=== PATIENT | female | born 1940 | race Caucasian/White ===

== ENCOUNTER 2021-09-14 13:53 | Inpatient (IN) | payer MEDICARE ==
[~2021-09-14] VITALS: Ht 170.2 cm; Wt 68.6 kg
[2021-09-14] MEDS ORDERED: TIMO0.5S29 OU (15:43)
[2021-09-14] MEDS ORDERED: MONT10TA97 PO (15:43)
[2021-09-14] MEDS ORDERED: GABA-1171 PO (15:43)
[2021-09-14] MEDS ORDERED: METF500T13 PO (15:43)
[2021-09-14] MEDS ORDERED: LOSA25TA13 PO (15:43)
[2021-09-14] MEDS ORDERED: OXYB5TAB10 PO (15:43)
[2021-09-14] MEDS ORDERED: OMEP40CA5 PO (15:43)
[2021-09-14] MEDS ORDERED: VENL75CA47 PO (15:43)
[2021-09-14] MEDS ORDERED: LEVE500T5 PO (15:43)
[2021-09-14] MEDS ORDERED: PRAV10TA4 PO (15:43)
[2021-09-14] MEDS ORDERED: LACO100T PO (15:43)
[2021-09-14 16:12] LABS: BASO % 0.2 % (0.0-1.0); EOS # 0.1 10^3/uL (0.0-0.5); EOS % 2.2 % (0.0-3.0); HEMOGLOBIN 9.6 g/dl (12.0-15.5); LYMPH # 1.5 10^3/uL (1.5-5.0); LYMPH % 33.3 % (24.0-44.0); MEAN CORPUSCULAR HEMOGLOBIN 27.5 pg (27.0-33.0); MEAN CORPUSCULAR HGB CONC 34.3 g/dl (32.0-36.5); MEAN CORPUSCULAR VOLUME 80.2 fl (80.0-96.0); MONO # 0.5 10^3/uL (0.0-0.8); NEUTROPHILS # 2.5 10^3/uL (1.5-8.5); NEUTROPHILS % 54.1 % (36.0-66.0); PLATELET COUNT, AUTOMATED 141 10^3/uL (150-450); RED BLOOD COUNT 3.49 10^6/uL (4.00-5.40); WHITE BLOOD COUNT 4.6 10^3/uL (4.0-10.0)
[2021-09-14 16:48] LABS: ALBUMIN 2.8 GM/DL (3.2-5.2); ALT/SGPT 14 U/L (12-78); BILIRUBIN,DIRECT 0.1 MG/DL (0.0-0.2); BILIRUBIN,TOTAL 0.4 MG/DL (0.2-1.0); BLOOD UREA NITROGEN 10 MG/DL (7-18); CALCIUM LEVEL 7.9 MG/DL (8.8-10.2); CARBON DIOXIDE LEVEL 30 MEQ/L (21-32); CHLORIDE LEVEL 102 MEQ/L (98-107); CREATININE FOR GFR 0.72 MG/DL (0.55-1.30); GLOMERULAR FILTRATION RATE > 60.0 (>32); GLUCOSE, FASTING 90 MG/DL (70-100); LIPASE 405 U/L (73-393); POTASSIUM SERUM 2.8 MEQ/L (3.5-5.1); SODIUM LEVEL 138 MEQ/L (136-145); TOTAL PROTEIN 5.6 GM/DL (6.4-8.2)
[2021-09-14] MEDS ORDERED: KCL 10MEQ/100ML SWI (KRUN) 10 MEQ in IV 1 EA IV ONE (17:05)
[2021-09-14 17:17] LABS: MAGNESIUM LEVEL 1.1 MG/DL (1.8-2.4)
[2021-09-14] MEDS ORDERED: NS 1,000 ML IV ONE (17:35)
[2021-09-14] MEDS ORDERED: MORPHINE 2 MG/ML 1ML VIAL IV ONE (17:35)
[2021-09-14] MEDS ORDERED: ISOVUE-370 76% 100ML VIAL As Ordered ONE (18:04)
[2021-09-14] MEDS ORDERED: MAG SULF 1GM/100ML (MAG RUN) 1 GM in IV 1 EA IV ONE ×2 (18:10→22:55)
[2021-09-14 19:04] LABS: INR 1.2; PARTIAL THROMBOPLASTIN TIME 31.9 SECONDS (25.9-37.0); PROTHROMBIN TIME 15.6 SECONDS (12.7-14.5)
[2021-09-14 19:11] LABS: CK-MB VALUE MASS 1.6 NG/ML (<3.6); MB/CK RELATIVE INDEX 3.72 (< OR =4)
[2021-09-14] MEDS: INSULIN LISPRO (NovoLOG) PER UNIT SC SCH (21:00)
[2021-09-14] MEDS ORDERED: MOM 30ML SUSPENSION UDC PO PRN (22:15)
[2021-09-14] MEDS ORDERED: GLUCOSE 4GM CHEW TABLET PO PRN (22:15)
[2021-09-14] MEDS ORDERED: DEXTROSE 50% 50 ML SYRINGE IV PRN (22:15)
[2021-09-14] MEDS ORDERED: GLUCAGON INJ 1MG VIAL SC PRN (22:15)
[2021-09-14] MEDS ORDERED: APAP500T10 PO (22:37)
[2021-09-14] MEDS ORDERED: HOME MED LIST COMPLETE! XX SCH (22:40)
[2021-09-14] MEDS ORDERED: POTASSIUM CHLORIDE 10MEQ SR TABLET PO ONE (22:55)
[2021-09-14] MEDS ORDERED: ACETAMINOPHEN 500 MG TAB PO PRN (23:00)
[2021-09-14] MEDS ORDERED: NS 500 ML IV ONE (23:45)
[2021-09-15] MEDS: levETIRAcetam 250MG TABLET (KEPPRA) PO SCH ×3 (00:14→20:07)
[2021-09-15] MEDS: LACOSAMIDE 50 MG TAB (VIMPAT) PO SCH ×3 (00:14→20:07)
[2021-09-15] MEDS: GABAPENTIN 100 MG CAP PO SCH ×3 (00:14→20:06)
[2021-09-15] MEDS: PRAVASTATIN 10 MG TAB PO SCH ×2 (00:25→20:07)
[2021-09-15 02:04] LABS: RSV AMPLIFICATION NEGATIVE (NEGATIVE)
[2021-09-15 02:09] LABS: POTASSIUM SERUM 2.5 MEQ/L (3.5-5.1)
[2021-09-15] MEDS ORDERED: POTASSIUM CHLORIDE 10% LIQ 20 MEQ/15 ML UDC PO ONE (02:30)
[2021-09-15] MEDS: KCL 10MEQ/100ML SWI (KRUN) 10 MEQ in IV 1 EA IV SCH ×3 (03:11→05:00)
[2021-09-15] MEDS ORDERED: FOSFOMYCIN TROMETHAMINE 3 GM POWDER PACKET (MONUROL) PO ONE ×2 (03:15→09:00)
[2021-09-15] MEDS: INSULIN LISPRO (NovoLOG) PER UNIT SC SCH ×4 (07:30→19:48)
[2021-09-15 07:43] LABS: HEMATOCRIT 25.6 % (36.0-47.0); HEMOGLOBIN 8.7 g/dl (12.0-15.5)
[2021-09-15] MEDS ORDERED: KCL 10MEQ/100ML SWI (KRUN) 10 MEQ in IV 1 EA IV SCH (08:00)
[2021-09-15 08:12] LABS: BLOOD UREA NITROGEN 6 MG/DL (7-18); CALCIUM LEVEL 7.8 MG/DL (8.8-10.2); CARBON DIOXIDE LEVEL 26 MEQ/L (21-32); CHLORIDE LEVEL 108 MEQ/L (98-107); CREATININE FOR GFR 0.54 MG/DL (0.55-1.30); GLOMERULAR FILTRATION RATE > 60.0 (>32); GLUCOSE, FASTING 84 MG/DL (70-100); POTASSIUM SERUM 3.7 MEQ/L (3.5-5.1); SODIUM LEVEL 139 MEQ/L (136-145)
[2021-09-15] MEDS: VENLAFAXINE **XR** 75MG CAPSULE PO SCH (08:52)
[2021-09-15] MEDS: OMEPRAZOLE 20MG CAP PO SCH (08:52)
[2021-09-15] MEDS: POTASSIUM CHLORIDE 10MEQ SR TABLET PO SCH ×2 (08:52→11:53)
[2021-09-15] MEDS ORDERED: GABAPENTIN 100 MG CAP PO SCH (09:00)
[2021-09-15] MEDS ORDERED: oxyBUTYnin 5 MG TAB PO SCH (09:00)
[2021-09-15] MEDS ORDERED: MONTELUKAST 10 MG TAB PO SCH (09:00)
[2021-09-15] MEDS ORDERED: ENOXAPARIN 40MG/0.4ML SYRINGE (J1650 PER 10MG) SC SCH (09:00)
[2021-09-15] MEDS ORDERED: MOM 30ML SUSPENSION UDC PO PRN (10:25)
[2021-09-15] MEDS: MIRALAX *UNIT DOSE* 17GM PACKET PO SCH ×2 (11:53→19:54)
[2021-09-15] MEDS: TIMOLOL MALEATE 0.5% OPHTH SOLN 5 ML OU SCH ×3 (13:50→20:07)
[2021-09-15] MEDS: HEPARIN SOD (PORCINE) 5000UNITS/ML 1ML VIAL/SYRINGE SQ SCH (20:06)
[2021-09-15] MEDS ORDERED: LOSARTAN 25 MG TAB PO SCH (21:00)
[2021-09-15] MEDS ORDERED: PRAVASTATIN 10 MG TAB PO SCH (21:00)
[2021-09-16 07:13] LABS: BASO % 0.5 % (0.0-1.0); EOS # 0.2 10^3/uL (0.0-0.5); EOS % 4.2 % (0.0-3.0); HEMOGLOBIN 9.2 g/dl (12.0-15.5); LYMPH # 1.3 10^3/uL (1.5-5.0); LYMPH % 32.4 % (24.0-44.0); MEAN CORPUSCULAR HEMOGLOBIN 27.4 pg (27.0-33.0); MEAN CORPUSCULAR HGB CONC 32.9 g/dl (32.0-36.5); MEAN CORPUSCULAR VOLUME 83.3 fl (80.0-96.0); MONO # 0.6 10^3/uL (0.0-0.8); MONO % 14.1 % (2.0-8.0); NEUTROPHILS % 48.6 % (36.0-66.0); PLATELET COUNT, AUTOMATED 122 10^3/uL (150-450); RED BLOOD COUNT 3.36 10^6/uL (4.00-5.40)
[2021-09-16] MEDS: HEPARIN SOD (PORCINE) 5000UNITS/ML 1ML VIAL/SYRINGE SQ SCH ×2 (07:13→14:30)
[2021-09-16 07:31] LABS: BLOOD UREA NITROGEN 8 MG/DL (7-18); CALCIUM LEVEL 8.2 MG/DL (8.8-10.2); CARBON DIOXIDE LEVEL 27 MEQ/L (21-32); CHLORIDE LEVEL 109 MEQ/L (98-107); CREATININE FOR GFR 0.48 MG/DL (0.55-1.30); GLOMERULAR FILTRATION RATE > 60.0 (>32); GLUCOSE, FASTING 99 MG/DL (70-100); MAGNESIUM LEVEL 1.6 MG/DL (1.8-2.4); SODIUM LEVEL 140 MEQ/L (136-145)
[2021-09-16] MEDS: INSULIN LISPRO (NovoLOG) PER UNIT SC SCH ×2 (07:51→12:37)
[2021-09-16] MEDS: LACOSAMIDE 50 MG TAB (VIMPAT) PO SCH (08:06)
[2021-09-16] MEDS: GABAPENTIN 100 MG CAP PO SCH (08:06)
[2021-09-16] MEDS: levETIRAcetam 250MG TABLET (KEPPRA) PO SCH (08:06)
[2021-09-16] MEDS: OMEPRAZOLE 20MG CAP PO SCH (08:06)
[2021-09-16] MEDS: MAG SULF 1GM/100ML (MAG RUN) 1 GM in IV 1 EA IV SCH ×2 (08:06→10:39)
[2021-09-16] MEDS: VENLAFAXINE **XR** 75MG CAPSULE PO SCH (08:06)
[2021-09-16] MEDS: TIMOLOL MALEATE 0.5% OPHTH SOLN 5 ML OU SCH (08:17)
[2021-09-16] MEDS: MIRALAX *UNIT DOSE* 17GM PACKET PO SCH (08:20)
[2021-09-16 15:15] VITALS: BP 126/59
[2021-09-16] MEDS ORDERED: MIRA3350 PO (15:22)
== END 2021-09-16 15:49 | disposition home or self-care (01) | DRG 312 ==
LOC: M ED 13:53 → M ED INP 09-15 00:52
PROVIDERS: ADMIT Internal Medicine; ATTEND Internal Medicine
PROC: BW28YZZ Computerized Tomography (CT Scan) of Head using Other Contrast (ICD-10-PCS; principal; 2021-09-14)
PROC: B246ZZZ Ultrasonography of Right and Left Heart (ICD-10-PCS; 2021-09-16)
DX: I95.1 Orthostatic hypotension (principal); I77.75 Dissection of other precerebral arteries; D64.9 Anemia, unspecified; E87.6 Hypokalemia; E83.42 Hypomagnesemia; R19.7 Diarrhea, unspecified; R21 Rash and other nonspecific skin eruption; G40.909 Epilepsy, unspecified, not intractable, without status epilepticus; K59.00 Constipation, unspecified; I10 Essential (primary) hypertension; E11.9 Type 2 diabetes mellitus without complications; E78.5 Hyperlipidemia, unspecified; K21.9 Gastro-esophageal reflux disease without esophagitis; R32 Unspecified urinary incontinence; F32.A Depression, unspecified; Z66 Do not resuscitate; Z92.21 Personal history of antineoplastic chemotherapy; Z85.43 Personal history of malignant neoplasm of ovary; M19.90 Unspecified osteoarthritis, unspecified site; Z90.79 Acquired absence of other genital organ(s); Z90.49 Acquired absence of other specified parts of digestive tract; Z79.84 Long term (current) use of oral hypoglycemic drugs; Z79.899 Other long term (current) drug therapy; Z88.0 Allergy status to penicillin; Z20.822 Contact with and (suspected) exposure to COVID-19; R29.6 Repeated falls

== ENCOUNTER → 2021-09-24 | Outpatient (CLI) | payer MEDICARE ==
[~2021-09-24] MED LIST: APAP500T10 PO; GABA-1171 PO; LACO100T PO; LEVE500T5 PO; LOSA25TA13 PO; METF500T13 PO; MIRA3350 PO; MONT10TA97 PO; OMEP40CA5 PO; OXYB5TAB10 PO; PRAV10TA4 PO; TIMO0.5S29 OU; VENL75CA47 PO
[2021-09-24 11:19] LABS: BASO % 0.3 % (0.0-1.0); EOS # 0.1 10^3/uL (0.0-0.5); EOS % 2.4 % (0.0-3.0); HEMATOCRIT 29.6 % (36.0-47.0); HEMOGLOBIN 9.8 g/dl (12.0-15.5); LYMPH # 1.1 10^3/uL (1.5-5.0); LYMPH % 28.8 % (24.0-44.0); MEAN CORPUSCULAR HEMOGLOBIN 27.7 pg (27.0-33.0); MEAN CORPUSCULAR HGB CONC 33.1 g/dl (32.0-36.5); MEAN CORPUSCULAR VOLUME 83.6 fl (80.0-96.0); MONO # 0.4 10^3/uL (0.0-0.8); MONO % 9.5 % (2.0-8.0); NEUTROPHILS # 2.2 10^3/uL (1.5-8.5); NEUTROPHILS % 58.7 % (36.0-66.0); PLATELET COUNT, AUTOMATED 204 10^3/uL (150-450); RED BLOOD COUNT 3.54 10^6/uL (4.00-5.40); WHITE BLOOD COUNT 3.8 10^3/uL (4.0-10.0)
[2021-09-24 11:54] LABS: ALBUMIN 2.9 GM/DL (3.2-5.2); ALT/SGPT 13 U/L (12-78); BILIRUBIN,TOTAL 0.3 MG/DL (0.2-1.0); BLOOD UREA NITROGEN 8 MG/DL (7-18); CALCIUM LEVEL 8.7 MG/DL (8.8-10.2); CARBON DIOXIDE LEVEL 28 MEQ/L (21-32); CHLORIDE LEVEL 106 MEQ/L (98-107); CHOLESTEROL LEVEL 103 MG/DL (<200); CREATININE FOR GFR 0.74 MG/DL (0.55-1.30); FERRITIN 205 NG/ML (8-252); FREE THYROXINE INDEX 2.6 % (1.3-4.8); GLOMERULAR FILTRATION RATE > 60.0 (>32); GLUCOSE, FASTING 99 MG/DL (70-100); HDL CHOLESTEROL 38 MG/DL (>40); IRON (FE) 245 UG/DL (50-170); LDL CHOLESTEROL 34 MG/DL (<100); MAGNESIUM LEVEL 1.5 MG/DL (1.8-2.4); NON-HDL-C 65 MG/DL; POTASSIUM SERUM 3.5 MEQ/L (3.5-5.1); SODIUM LEVEL 140 MEQ/L (136-145); T UPTAKE 32 % (30-39); THYROXINE (T4) 8.1 UG/DL (4.5-12.0); TOTAL IRON BINDING CAPACITY 250 UG/DL (250-450); TOTAL PROTEIN 6.2 GM/DL (6.4-8.2); TRIGLYCERIDES LEVEL 155 MG/DL (<150)
== END ==
LOC: M LAB 10:42
PROVIDERS: ATTEND Internal Medicine Cardiovascular Disease
DX: E87.6 Hypokalemia (principal); Z00.8 Encounter for other general examination; R53.83 Other fatigue; Z13.220 Encounter for screening for lipoid disorders; D50.9 Iron deficiency anemia, unspecified

== ENCOUNTER 2021-10-12 17:33 | Inpatient (IN) | payer MEDICARE ==
[~2021-10-12] VITALS: Ht 170.2 cm; Wt 69.5 kg
[2021-10-12 18:17] LABS: BASO % 0.3 % (0.0-1.0); HEMATOCRIT 22.4 % (36.0-47.0); HEMOGLOBIN 7.3 g/dl (12.0-15.5); LYMPH % 25.4 % (24.0-44.0); MEAN CORPUSCULAR HEMOGLOBIN 27.1 pg (27.0-33.0); MEAN CORPUSCULAR HGB CONC 32.6 g/dl (32.0-36.5); MEAN CORPUSCULAR VOLUME 83.3 fl (80.0-96.0); MONO # 0.6 10^3/uL (0.0-0.8); MONO % 14.1 % (2.0-8.0); NEUTROPHILS # 2.3 10^3/uL (1.5-8.5); NEUTROPHILS % 58.9 % (36.0-66.0); PLATELET COUNT, AUTOMATED 157 10^3/uL (150-450); RED BLOOD COUNT 2.69 10^6/uL (4.00-5.40); WHITE BLOOD COUNT 3.9 10^3/uL (4.0-10.0)
[2021-10-12 18:52] LABS: CK-MB VALUE MASS < 1.0 NG/ML (<3.6); CPK CREATINE PHOSPHOKINASE 26 U/L (26-192); MB/CK RELATIVE INDEX 3.85 (< OR =4)
[2021-10-12 18:58] LABS: BLOOD UREA NITROGEN 11 MG/DL (7-18); CALCIUM LEVEL 8.5 MG/DL (8.8-10.2); CARBON DIOXIDE LEVEL 26 MEQ/L (21-32); CHLORIDE LEVEL 106 MEQ/L (98-107); CREATININE FOR GFR 0.66 MG/DL (0.55-1.30); FREE T4 1.18 NG/DL (0.76-1.46); GLOMERULAR FILTRATION RATE > 60.0 (>32); GLUCOSE, FASTING 103 MG/DL (70-100); MAGNESIUM LEVEL 1.7 MG/DL (1.8-2.4); POTASSIUM SERUM 3.8 MEQ/L (3.5-5.1); SODIUM LEVEL 138 MEQ/L (136-145)
[2021-10-12] MEDS ORDERED: POTA10808 PO (19:39)
[2021-10-12] MEDS ORDERED: MAGN50TA PO (19:39)
[2021-10-12] MEDS ORDERED: HOME MED LIST COMPLETE! XX SCH (19:40)
[2021-10-12 20:40] LABS: FERRITIN 311 NG/ML (8-252); IRON (FE) 220 UG/DL (50-170); PERCENT SATURATION 96.9 % (13.2-45.0); TOTAL IRON BINDING CAPACITY 227 UG/DL (250-450)
[2021-10-12 20:43] LABS: RSV AMPLIFICATION NEGATIVE (NEGATIVE)
[2021-10-12] MEDS: levETIRAcetam 250MG TABLET (KEPPRA) PO SCH (21:00)
[2021-10-12] MEDS ORDERED: LACOSAMIDE 50 MG TAB (VIMPAT) PO SCH (21:00)
[2021-10-12] MEDS: GABAPENTIN 100 MG CAP PO SCH (21:00)
[2021-10-12] MEDS: MONTELUKAST 10 MG TAB PO SCH (21:00)
[2021-10-12] MEDS ORDERED: MAGNESIUM OXIDE 400MG TAB (MAG-OX) PO ONE (21:15)
[2021-10-12 21:57] LABS: CK-MB VALUE MASS 1.2 NG/ML (<3.6); MB/CK RELATIVE INDEX 3.53 (< OR =4)
[2021-10-12 22:00] VITALS: BP 147/67
[2021-10-12] MEDS ORDERED: GLUCOSE 4GM CHEW TABLET PO PRN (22:40)
[2021-10-12] MEDS ORDERED: DEXTROSE 50% 50 ML SYRINGE IV PRN (22:40)
[2021-10-12] MEDS ORDERED: GLUCAGON INJ 1MG VIAL SC PRN (22:40)
[2021-10-12] MEDS ORDERED: diphenhydrAMINE 25MG CAP PO ONE (23:15)
[2021-10-12] MEDS ORDERED: ACETAMINOPHEN TAB 650MG DOSE (2X325MG) PO ONE (23:15)
[2021-10-12] MEDS: TIMOLOL MALEATE 0.5% OPHTH SOLN 5 ML OU SCH (23:25)
[2021-10-12] MEDS: PANTOPRAZOLE 40MG VIAL IV SCH (23:25)
[2021-10-12] MEDS: PRAVASTATIN 10 MG TAB PO SCH (23:25)
[2021-10-12 23:42] VITALS: BP 139/68
[2021-10-13] VITALS (11 sets, daily range): BP systolic 76–140; BP diastolic 50–68
[2021-10-13] MEDS: D5W/0.9% SODIUM CHLORIDE 1,000 ML IV SCH ×2 (02:03→13:21)
[2021-10-13] MEDS ORDERED: LACOSAMIDE 50 MG TAB (VIMPAT) PO ONE ×3 (03:30→11:00)
[2021-10-13 05:21] LABS: HEMATOCRIT 25.8 % (36.0-47.0); HEMOGLOBIN 8.5 g/dl (12.0-15.5); MEAN CORPUSCULAR HEMOGLOBIN 27.4 pg (27.0-33.0); MEAN CORPUSCULAR HGB CONC 32.9 g/dl (32.0-36.5); MEAN CORPUSCULAR VOLUME 83.2 fl (80.0-96.0); PLATELET COUNT, AUTOMATED 140 10^3/uL (150-450); WHITE BLOOD COUNT 3.6 10^3/uL (4.0-10.0)
[2021-10-13] MEDS: INSULIN LISPRO (NovoLOG) PER UNIT SC SCH ×5 (05:34→21:00)
[2021-10-13 05:38] LABS: HEMOGLOBIN A1c 6.3 %
[2021-10-13 05:40] LABS: BLOOD UREA NITROGEN 10 MG/DL (7-18); CALCIUM LEVEL 8.5 MG/DL (8.8-10.2); CARBON DIOXIDE LEVEL 28 MEQ/L (21-32); CHLORIDE LEVEL 109 MEQ/L (98-107); CREATININE FOR GFR 0.62 MG/DL (0.55-1.30); GLOMERULAR FILTRATION RATE > 60.0 (>32); GLUCOSE, FASTING 114 MG/DL (70-100); MAGNESIUM LEVEL 1.9 MG/DL (1.8-2.4); POTASSIUM SERUM 3.3 MEQ/L (3.5-5.1); SODIUM LEVEL 142 MEQ/L (136-145)
[2021-10-13] MEDS ORDERED: KCL 10MEQ/100ML SWI (KRUN) 10 MEQ in IV 1 EA IV SCH (08:00)
[2021-10-13] MEDS ORDERED: PANTOPRAZOLE 40MG TAB (PROTONIX) PO SCH (09:00)
[2021-10-13] MEDS: PANTOPRAZOLE 40MG VIAL IV SCH ×2 (09:33→20:39)
[2021-10-13] MEDS: GABAPENTIN 100 MG CAP PO SCH ×2 (09:34→20:37)
[2021-10-13] MEDS: levETIRAcetam 250MG TABLET (KEPPRA) PO SCH ×2 (09:34→20:38)
[2021-10-13] MEDS: VENLAFAXINE **XR** 75MG CAPSULE PO SCH (09:34)
[2021-10-13] MEDS: TIMOLOL MALEATE 0.5% OPHTH SOLN 5 ML OU SCH ×3 (09:35→20:39)
[2021-10-13] MEDS ORDERED: LR 1,000 ML IV ONE (10:15)
[2021-10-13 11:24] LABS: FERRITIN 318 NG/ML (8-252); IRON (FE) 211 UG/DL (50-170); PERCENT SATURATION 102.4 % (13.2-45.0); TOTAL IRON BINDING CAPACITY 206 UG/DL (250-450)
[2021-10-13 11:42] LABS: HEMATOCRIT 26.8 % (36.0-47.0); HEMOGLOBIN 8.7 g/dl (12.0-15.5)
[2021-10-13] MEDS ORDERED: POTASSIUM CHLORIDE 10MEQ SR TABLET PO ONE (12:00)
[2021-10-13] MEDS ORDERED: MIDODRINE 2.5 MG TAB PO SCH (12:00)
[2021-10-13] MEDS ORDERED: MAG SULF 1GM/100ML (MAG RUN) 1 GM in IV 1 EA IV ONE (12:00)
[2021-10-13] MEDS: MOM 30ML SUSPENSION UDC PO SCH (12:44)
[2021-10-13] MEDS: MIDODRINE 5 MG TAB PO SCH (17:20)
[2021-10-13 18:02] LABS: HEMATOCRIT 27.2 % (36.0-47.0); HEMOGLOBIN 8.7 g/dl (12.0-15.5)
[2021-10-13] MEDS: PRAVASTATIN 10 MG TAB PO SCH (20:38)
[2021-10-13] MEDS: MONTELUKAST 10 MG TAB PO SCH (20:38)
[2021-10-13] MEDS: LACOSAMIDE 50 MG TAB (VIMPAT) PO SCH (20:38)
[2021-10-14] MEDS: D5W/0.9% SODIUM CHLORIDE 1,000 ML IV SCH (02:27)
[2021-10-14 05:27] VITALS: BP 104/57
[2021-10-14 06:20] VITALS: BP_SYST 122; BP_SYST 125; BP_SYST 99; BP_DIAS 55; BP_DIAS 57
[2021-10-14] MEDS ORDERED: NS 250 ML IV ONE (06:25)
[2021-10-14] MEDS: INSULIN LISPRO (NovoLOG) PER UNIT SC SCH ×4 (07:30→21:00)
[2021-10-14] MEDS: MOM 30ML SUSPENSION UDC PO SCH (07:38)
[2021-10-14 08:10] LABS: BLOOD UREA NITROGEN 7 MG/DL (7-18); CALCIUM LEVEL 8.3 MG/DL (8.8-10.2); CARBON DIOXIDE LEVEL 28 MEQ/L (21-32); CHLORIDE LEVEL 110 MEQ/L (98-107); CREATININE FOR GFR 0.51 MG/DL (0.55-1.30); GLOMERULAR FILTRATION RATE > 60.0 (>32); GLUCOSE, FASTING 111 MG/DL (70-100); POTASSIUM SERUM 3.7 MEQ/L (3.5-5.1); SODIUM LEVEL 143 MEQ/L (136-145)
[2021-10-14 08:37] LABS: BASO % 0.2 % (0.0-1.0); EOS # 0.1 10^3/uL (0.0-0.5); EOS % 3.1 % (0.0-3.0); HEMATOCRIT 24.5 % (36.0-47.0); HEMOGLOBIN 7.9 g/dl (12.0-15.5); LYMPH # 1.5 10^3/uL (1.5-5.0); LYMPH % 36.1 % (24.0-44.0); MEAN CORPUSCULAR HEMOGLOBIN 27.3 pg (27.0-33.0); MEAN CORPUSCULAR HGB CONC 32.2 g/dl (32.0-36.5); MEAN CORPUSCULAR VOLUME 84.8 fl (80.0-96.0); MONO # 0.6 10^3/uL (0.0-0.8); MONO % 13.3 % (2.0-8.0); NEUTROPHILS # 1.9 10^3/uL (1.5-8.5); NEUTROPHILS % 46.8 % (36.0-66.0); PLATELET COUNT, AUTOMATED 152 10^3/uL (150-450); RED BLOOD COUNT 2.89 10^6/uL (4.00-5.40); WHITE BLOOD COUNT 4.2 10^3/uL (4.0-10.0)
[2021-10-14] MEDS: MIDODRINE 5 MG TAB PO SCH ×3 (08:41→16:27)
[2021-10-14] MEDS: LACOSAMIDE 50 MG TAB (VIMPAT) PO SCH ×2 (08:41→21:25)
[2021-10-14] MEDS: PANTOPRAZOLE 40MG VIAL IV SCH ×2 (08:41→21:25)
[2021-10-14] MEDS: levETIRAcetam 250MG TABLET (KEPPRA) PO SCH ×2 (08:42→21:25)
[2021-10-14] MEDS: GABAPENTIN 100 MG CAP PO SCH ×2 (08:42→21:25)
[2021-10-14] MEDS: TIMOLOL MALEATE 0.5% OPHTH SOLN 5 ML OU SCH ×3 (08:42→21:26)
[2021-10-14] MEDS: VENLAFAXINE **XR** 75MG CAPSULE PO SCH (08:42)
[2021-10-14] MEDS: ACETAMINOPHEN TAB 650MG DOSE (2X325MG) PO PRN (10:36)
[2021-10-14 12:21] LABS: PROLACTIN 15.8 NG/ML
[2021-10-14 12:22] LABS: FOLATE 7.7 NG/ML; VITAMIN B12 LEVEL 169 PG/ML
[2021-10-14 14:00] VITALS: BP_SYST 124; BP_SYST 125; BP_SYST 96; BP_DIAS 58; BP_DIAS 80; BP_DIAS 85
[2021-10-14 14:08] LABS: ALBUMIN 2.5 GM/DL (3.2-5.2); ALT/SGPT 9 U/L (12-78); BILIRUBIN,DIRECT < 0.1 MG/DL (0.0-0.2); BILIRUBIN,TOTAL 0.1 MG/DL (0.2-1.0); TOTAL PROTEIN 4.9 GM/DL (6.4-8.2)
[2021-10-14 15:29] LABS: HEMATOCRIT 25.8 % (36.0-47.0); HEMOGLOBIN 8.3 g/dl (12.0-15.5)
[2021-10-14 18:13] LABS: HEMATOCRIT 24.8 % (36.0-47.0)
[2021-10-14] MEDS: MONTELUKAST 10 MG TAB PO SCH (21:25)
[2021-10-14] MEDS: PRAVASTATIN 10 MG TAB PO SCH (21:25)
[2021-10-14 22:00] VITALS: BP 123/58
[2021-10-15 06:20] LABS: BASO % 0.2 % (0.0-1.0); EOS # 0.1 10^3/uL (0.0-0.5); EOS % 2.3 % (0.0-3.0); HEMOGLOBIN 7.9 g/dl (12.0-15.5); LYMPH # 1.6 10^3/uL (1.5-5.0); LYMPH % 30.3 % (24.0-44.0); MEAN CORPUSCULAR HEMOGLOBIN 27.4 pg (27.0-33.0); MEAN CORPUSCULAR HGB CONC 32.9 g/dl (32.0-36.5); MEAN CORPUSCULAR VOLUME 83.3 fl (80.0-96.0); MONO # 0.6 10^3/uL (0.0-0.8); MONO % 10.9 % (2.0-8.0); NEUTROPHILS % 55.9 % (36.0-66.0); PLATELET COUNT, AUTOMATED 163 10^3/uL (150-450); RED BLOOD COUNT 2.88 10^6/uL (4.00-5.40); WHITE BLOOD COUNT 5.3 10^3/uL (4.0-10.0)
[2021-10-15 06:59] LABS: BLOOD UREA NITROGEN 7 MG/DL (7-18); CALCIUM LEVEL 8.5 MG/DL (8.8-10.2); CARBON DIOXIDE LEVEL 26 MEQ/L (21-32); CHLORIDE LEVEL 110 MEQ/L (98-107); GLOMERULAR FILTRATION RATE > 60.0 (>32); GLUCOSE, FASTING 99 MG/DL (70-100); POTASSIUM SERUM 3.7 MEQ/L (3.5-5.1); SODIUM LEVEL 145 MEQ/L (136-145)
[2021-10-15] MEDS: GABAPENTIN 100 MG CAP PO SCH ×2 (08:03→20:31)
[2021-10-15] MEDS: PANTOPRAZOLE 40MG VIAL IV SCH (08:03)
[2021-10-15] MEDS: LACOSAMIDE 50 MG TAB (VIMPAT) PO SCH ×2 (08:03→20:31)
[2021-10-15] MEDS: MIDODRINE 5 MG TAB PO SCH ×3 (08:03→15:50)
[2021-10-15] MEDS: VENLAFAXINE **XR** 75MG CAPSULE PO SCH (08:03)
[2021-10-15] MEDS: levETIRAcetam 250MG TABLET (KEPPRA) PO SCH (08:03)
[2021-10-15] MEDS: MOM 30ML SUSPENSION UDC PO SCH (08:04)
[2021-10-15] MEDS: TIMOLOL MALEATE 0.5% OPHTH SOLN 5 ML OU SCH ×3 (08:04→20:31)
[2021-10-15 14:00] VITALS: BP 149/84
[2021-10-15] MEDS: MONTELUKAST 10 MG TAB PO SCH (20:32)
[2021-10-15] MEDS: PRAVASTATIN 10 MG TAB PO SCH (20:32)
[2021-10-15 21:27] VITALS: BP 150/82
[2021-10-15 21:45] VITALS: BP 159/81
[2021-10-15 22:00] VITALS: BP 168/70
[2021-10-15 22:45] VITALS: BP 168/78
[2021-10-15 23:50] VITALS: BP 162/74
[2021-10-16] VITALS (9 sets, daily range): BP systolic 105–190; BP diastolic 60–88
[2021-10-16 06:03] LABS: HEMATOCRIT 30.4 % (36.0-47.0); MEAN CORPUSCULAR HEMOGLOBIN 27.5 pg (27.0-33.0); MEAN CORPUSCULAR HGB CONC 33.6 g/dl (32.0-36.5); MEAN CORPUSCULAR VOLUME 81.9 fl (80.0-96.0); PLATELET COUNT, AUTOMATED 184 10^3/uL (150-450); RED BLOOD COUNT 3.71 10^6/uL (4.00-5.40); WHITE BLOOD COUNT 6.4 10^3/uL (4.0-10.0)
[2021-10-16 06:12] LABS: HEMOGLOBIN 10.2 g/dl (12.0-15.5)
[2021-10-16 06:45] LABS: ALBUMIN 2.9 GM/DL (3.2-5.2); ALT/SGPT 13 U/L (12-78); BILIRUBIN,TOTAL 0.6 MG/DL (0.2-1.0); BLOOD UREA NITROGEN 6 MG/DL (7-18); CALCIUM LEVEL 8.9 MG/DL (8.8-10.2); CARBON DIOXIDE LEVEL 31 MEQ/L (21-32); CHLORIDE LEVEL 105 MEQ/L (98-107); GLOMERULAR FILTRATION RATE > 60.0 (>32); GLUCOSE, FASTING 102 MG/DL (70-100); POTASSIUM SERUM 3.8 MEQ/L (3.5-5.1); SODIUM LEVEL 140 MEQ/L (136-145); TOTAL PROTEIN 5.8 GM/DL (6.4-8.2)
[2021-10-16] MEDS ORDERED: MIDODRINE 5 MG TAB PO SCH (08:00)
[2021-10-16] MEDS: GABAPENTIN 100 MG CAP PO SCH ×2 (08:52→20:13)
[2021-10-16] MEDS: OMEPRAZOLE 20MG CAP PO SCH (08:53)
[2021-10-16] MEDS: FOLIC ACID 1MG TAB PO SCH (08:53)
[2021-10-16] MEDS: MOM 30ML SUSPENSION UDC PO SCH (08:53)
[2021-10-16] MEDS: LACOSAMIDE 50 MG TAB (VIMPAT) PO SCH ×2 (08:53→20:13)
[2021-10-16] MEDS: VENLAFAXINE **XR** 75MG CAPSULE PO SCH (08:53)
[2021-10-16] MEDS: CYANOCOBALAMIN 1,000MCG/ML VIAL (J3420) SC SCH (08:54)
[2021-10-16] MEDS: TIMOLOL MALEATE 0.5% OPHTH SOLN 5 ML OU SCH ×3 (08:54→20:14)
[2021-10-16] MEDS ORDERED: ISOVUE-370 76% 100ML VIAL As Ordered ONE (10:42)
[2021-10-16] MEDS: MIDODRINE 5 MG TAB PO SCH ×2 (11:58→16:00)
[2021-10-16] MEDS: ACETAMINOPHEN TAB 650MG DOSE (2X325MG) PO PRN (12:46)
[2021-10-16] MEDS: PRAVASTATIN 10 MG TAB PO SCH (20:13)
[2021-10-16] MEDS: MONTELUKAST 10 MG TAB PO SCH (20:13)
[2021-10-17 06:00] VITALS: BP 153/74
[2021-10-17] MEDS: MIDODRINE 5 MG TAB PO SCH (07:42)
[2021-10-17 08:31] LABS: HEMATOCRIT 32.4 % (36.0-47.0); HEMOGLOBIN 10.8 g/dl (12.0-15.5); MEAN CORPUSCULAR HEMOGLOBIN 27.2 pg (27.0-33.0); MEAN CORPUSCULAR HGB CONC 33.3 g/dl (32.0-36.5); MEAN CORPUSCULAR VOLUME 81.6 fl (80.0-96.0); PLATELET COUNT, AUTOMATED 211 10^3/uL (150-450); RED BLOOD COUNT 3.97 10^6/uL (4.00-5.40); WHITE BLOOD COUNT 7.2 10^3/uL (4.0-10.0)
[2021-10-17] MEDS: MOM 30ML SUSPENSION UDC PO SCH (09:00)
[2021-10-17 09:19] LABS: ALT/SGPT 9 U/L (12-78); BILIRUBIN,TOTAL 0.3 MG/DL (0.2-1.0); BLOOD UREA NITROGEN 7 MG/DL (7-18); CALCIUM LEVEL 8.9 MG/DL (8.8-10.2); CARBON DIOXIDE LEVEL 31 MEQ/L (21-32); CHLORIDE LEVEL 103 MEQ/L (98-107); CREATININE FOR GFR 0.67 MG/DL (0.55-1.30); GLOMERULAR FILTRATION RATE > 60.0 (>32); GLUCOSE, FASTING 126 MG/DL (70-100); POTASSIUM SERUM 3.7 MEQ/L (3.5-5.1); SODIUM LEVEL 139 MEQ/L (136-145); TOTAL PROTEIN 6.2 GM/DL (6.4-8.2)
[2021-10-17] MEDS: OMEPRAZOLE 20MG CAP PO SCH (09:28)
[2021-10-17] MEDS: LACOSAMIDE 50 MG TAB (VIMPAT) PO SCH ×2 (09:28→20:21)
[2021-10-17] MEDS: TIMOLOL MALEATE 0.5% OPHTH SOLN 5 ML OU SCH ×3 (09:28→20:22)
[2021-10-17] MEDS: FOLIC ACID 1MG TAB PO SCH (09:28)
[2021-10-17] MEDS: CYANOCOBALAMIN 1,000MCG/ML VIAL (J3420) SC SCH (09:28)
[2021-10-17] MEDS: VENLAFAXINE **XR** 75MG CAPSULE PO SCH (09:28)
[2021-10-17] MEDS: GABAPENTIN 100 MG CAP PO SCH ×2 (09:28→20:21)
[2021-10-17 10:30] VITALS: BP_SYST 147; BP_SYST 173; BP_SYST 175; BP_DIAS 78; BP_DIAS 83; BP_DIAS 87
[2021-10-17 14:00] VITALS: BP 144/75
[2021-10-17] MEDS: PRAVASTATIN 10 MG TAB PO SCH (20:21)
[2021-10-17] MEDS: MONTELUKAST 10 MG TAB PO SCH (20:21)
[2021-10-17 21:00] VITALS: BP 144/72
[2021-10-18 05:58] LABS: HEMATOCRIT 29.7 % (36.0-47.0); HEMOGLOBIN 9.7 g/dl (12.0-15.5); MEAN CORPUSCULAR HEMOGLOBIN 26.8 pg (27.0-33.0); MEAN CORPUSCULAR HGB CONC 32.7 g/dl (32.0-36.5); PLATELET COUNT, AUTOMATED 187 10^3/uL (150-450); RED BLOOD COUNT 3.62 10^6/uL (4.00-5.40); WHITE BLOOD COUNT 6.2 10^3/uL (4.0-10.0)
[2021-10-18 06:00] VITALS: BP 134/74
[2021-10-18 06:33] LABS: ALBUMIN 2.6 GM/DL (3.2-5.2); ALT/SGPT 10 U/L (12-78); BILIRUBIN,TOTAL 0.4 MG/DL (0.2-1.0); BLOOD UREA NITROGEN 7 MG/DL (7-18); CALCIUM LEVEL 8.5 MG/DL (8.8-10.2); CARBON DIOXIDE LEVEL 27 MEQ/L (21-32); CHLORIDE LEVEL 105 MEQ/L (98-107); CREATININE FOR GFR 0.55 MG/DL (0.55-1.30); GLOMERULAR FILTRATION RATE > 60.0 (>32); GLUCOSE, FASTING 102 MG/DL (70-100); POTASSIUM SERUM 3.4 MEQ/L (3.5-5.1); SODIUM LEVEL 139 MEQ/L (136-145); TOTAL PROTEIN 5.4 GM/DL (6.4-8.2)
[2021-10-18] MEDS ORDERED: POTASSIUM CHLORIDE 10MEQ SR TABLET PO ONE (08:00)
[2021-10-18] MEDS: MOM 30ML SUSPENSION UDC PO SCH (08:53)
[2021-10-18] MEDS: LACOSAMIDE 50 MG TAB (VIMPAT) PO SCH ×2 (08:54→21:03)
[2021-10-18] MEDS: VENLAFAXINE **XR** 75MG CAPSULE PO SCH (08:54)
[2021-10-18] MEDS: GABAPENTIN 100 MG CAP PO SCH ×2 (08:54→21:04)
[2021-10-18] MEDS: FOLIC ACID 1MG TAB PO SCH (08:57)
[2021-10-18] MEDS: OMEPRAZOLE 20MG CAP PO SCH (08:57)
[2021-10-18] MEDS: CYANOCOBALAMIN 1,000MCG/ML VIAL (J3420) SC SCH (08:57)
[2021-10-18] MEDS: TIMOLOL MALEATE 0.5% OPHTH SOLN 5 ML OU SCH ×3 (08:57→21:04)
[2021-10-18 14:00] VITALS: BP 126/60
[2021-10-18 15:56] VITALS: BP_SYST 104; BP_SYST 157; BP_SYST 162; BP_DIAS 74; BP_DIAS 83
[2021-10-18] MEDS: MONTELUKAST 10 MG TAB PO SCH (21:04)
[2021-10-18] MEDS: PRAVASTATIN 10 MG TAB PO SCH (21:04)
[2021-10-18 22:00] VITALS: BP 130/64
[2021-10-19 06:00] VITALS: BP 136/61
[2021-10-19 06:26] LABS: HEMATOCRIT 30.5 % (36.0-47.0); MEAN CORPUSCULAR HEMOGLOBIN 27.2 pg (27.0-33.0); MEAN CORPUSCULAR HGB CONC 32.8 g/dl (32.0-36.5); MEAN CORPUSCULAR VOLUME 83.1 fl (80.0-96.0); PLATELET COUNT, AUTOMATED 223 10^3/uL (150-450); RED BLOOD COUNT 3.67 10^6/uL (4.00-5.40); WHITE BLOOD COUNT 4.9 10^3/uL (4.0-10.0)
[2021-10-19 07:00] LABS: ALBUMIN 2.6 GM/DL (3.2-5.2); ALT/SGPT 10 U/L (12-78); BILIRUBIN,TOTAL 0.3 MG/DL (0.2-1.0); BLOOD UREA NITROGEN 7 MG/DL (7-18); CALCIUM LEVEL 8.7 MG/DL (8.8-10.2); CARBON DIOXIDE LEVEL 30 MEQ/L (21-32); CHLORIDE LEVEL 106 MEQ/L (98-107); CREATININE FOR GFR 0.57 MG/DL (0.55-1.30); GLOMERULAR FILTRATION RATE > 60.0 (>32); GLUCOSE, FASTING 103 MG/DL (70-100); POTASSIUM SERUM 3.8 MEQ/L (3.5-5.1); SODIUM LEVEL 140 MEQ/L (136-145); TOTAL PROTEIN 5.5 GM/DL (6.4-8.2)
[2021-10-19 07:40] VITALS: BP_SYST 108; BP_SYST 146; BP_SYST 150; BP_DIAS 64; BP_DIAS 71; BP_DIAS 75
[2021-10-19] MEDS: CYANOCOBALAMIN 1,000MCG/ML VIAL (J3420) SC SCH (10:33)
[2021-10-19] MEDS: OMEPRAZOLE 20MG CAP PO SCH (10:34)
[2021-10-19] MEDS: VENLAFAXINE **XR** 75MG CAPSULE PO SCH (10:34)
[2021-10-19] MEDS: MOM 30ML SUSPENSION UDC PO SCH (10:34)
[2021-10-19] MEDS: FOLIC ACID 1MG TAB PO SCH (10:34)
[2021-10-19] MEDS: GABAPENTIN 100 MG CAP PO SCH ×2 (10:35→23:03)
[2021-10-19] MEDS: TIMOLOL MALEATE 0.5% OPHTH SOLN 5 ML OU SCH ×3 (10:35→23:03)
[2021-10-19] MEDS: LACOSAMIDE 50 MG TAB (VIMPAT) PO SCH ×2 (10:35→23:03)
[2021-10-19 14:00] VITALS: BP 148/76
[2021-10-19] MEDS: PRAVASTATIN 10 MG TAB PO SCH (23:03)
[2021-10-19] MEDS: MONTELUKAST 10 MG TAB PO SCH (23:03)
[2021-10-20 06:00] VITALS: BP 142/79
[2021-10-20] MEDS: ACETAMINOPHEN TAB 650MG DOSE (2X325MG) PO PRN ×2 (06:37→13:00)
[2021-10-20 07:11] LABS: MEAN CORPUSCULAR HEMOGLOBIN 27.2 pg (27.0-33.0); MEAN CORPUSCULAR HGB CONC 32.3 g/dl (32.0-36.5); MEAN CORPUSCULAR VOLUME 84.2 fl (80.0-96.0); PLATELET COUNT, AUTOMATED 258 10^3/uL (150-450); RED BLOOD COUNT 3.68 10^6/uL (4.00-5.40); WHITE BLOOD COUNT 5.4 10^3/uL (4.0-10.0)
[2021-10-20 07:41] LABS: ALBUMIN 2.8 GM/DL (3.2-5.2); ALT/SGPT 10 U/L (12-78); BILIRUBIN,TOTAL 0.2 MG/DL (0.2-1.0); BLOOD UREA NITROGEN 8 MG/DL (7-18); CALCIUM LEVEL 8.8 MG/DL (8.8-10.2); CARBON DIOXIDE LEVEL 28 MEQ/L (21-32); CHLORIDE LEVEL 103 MEQ/L (98-107); CREATININE FOR GFR 0.56 MG/DL (0.55-1.30); GLOMERULAR FILTRATION RATE > 60.0 (>32); GLUCOSE, FASTING 100 MG/DL (70-100); SODIUM LEVEL 136 MEQ/L (136-145); TOTAL PROTEIN 5.6 GM/DL (6.4-8.2)
[2021-10-20] MEDS: MOM 30ML SUSPENSION UDC PO SCH (09:00)
[2021-10-20] MEDS: FOLIC ACID 1MG TAB PO SCH (10:03)
[2021-10-20] MEDS: GABAPENTIN 100 MG CAP PO SCH ×2 (10:03→22:46)
[2021-10-20] MEDS: VENLAFAXINE **XR** 75MG CAPSULE PO SCH (10:03)
[2021-10-20] MEDS: OMEPRAZOLE 20MG CAP PO SCH (10:04)
[2021-10-20] MEDS: LACOSAMIDE 50 MG TAB (VIMPAT) PO SCH ×2 (10:04→22:47)
[2021-10-20] MEDS: CYANOCOBALAMIN 1,000MCG/ML VIAL (J3420) SC SCH (10:04)
[2021-10-20] MEDS: TIMOLOL MALEATE 0.5% OPHTH SOLN 5 ML OU SCH ×3 (10:05→22:47)
[2021-10-20 16:24] LABS: URIC ACID 5.2 MG/DL (2.6-6.0)
[2021-10-20 17:17] LABS: Methylmalonic Acid 182 nmol/L (0-378); SOLUBLE TRANSFERRIN RECEPTOR 6.2 nmol/L (12.2-27.3)
[2021-10-20] MEDS: MONTELUKAST 10 MG TAB PO SCH (22:46)
[2021-10-20] MEDS: PRAVASTATIN 10 MG TAB PO SCH (22:54)
[2021-10-21 05:39] VITALS: BP 164/84
[2021-10-21 06:33] LABS: HEMATOCRIT 31.3 % (36.0-47.0); HEMOGLOBIN 10.2 g/dl (12.0-15.5); MEAN CORPUSCULAR HEMOGLOBIN 27.3 pg (27.0-33.0); MEAN CORPUSCULAR HGB CONC 32.6 g/dl (32.0-36.5); MEAN CORPUSCULAR VOLUME 83.9 fl (80.0-96.0); PLATELET COUNT, AUTOMATED 281 10^3/uL (150-450); RED BLOOD COUNT 3.73 10^6/uL (4.00-5.40); WHITE BLOOD COUNT 4.7 10^3/uL (4.0-10.0)
[2021-10-21 07:23] LABS: ALBUMIN 2.8 GM/DL (3.2-5.2); ALT/SGPT 8 U/L (12-78); BILIRUBIN,TOTAL 0.5 MG/DL (0.2-1.0); BLOOD UREA NITROGEN 6 MG/DL (7-18); CALCIUM LEVEL 8.7 MG/DL (8.8-10.2); CARBON DIOXIDE LEVEL 28 MEQ/L (21-32); CHLORIDE LEVEL 104 MEQ/L (98-107); GLOMERULAR FILTRATION RATE > 60.0 (>32); GLUCOSE, FASTING 99 MG/DL (70-100); POTASSIUM SERUM 4.1 MEQ/L (3.5-5.1); SODIUM LEVEL 136 MEQ/L (136-145); TOTAL PROTEIN 5.6 GM/DL (6.4-8.2)
[2021-10-21] MEDS: MOM 30ML SUSPENSION UDC PO SCH (09:00)
[2021-10-21] MEDS: FOLIC ACID 1MG TAB PO SCH (10:18)
[2021-10-21] MEDS: VENLAFAXINE **XR** 75MG CAPSULE PO SCH (10:18)
[2021-10-21] MEDS: GABAPENTIN 100 MG CAP PO SCH (10:18)
[2021-10-21] MEDS: TIMOLOL MALEATE 0.5% OPHTH SOLN 5 ML OU SCH (10:18)
[2021-10-21] MEDS: LACOSAMIDE 50 MG TAB (VIMPAT) PO SCH (10:18)
[2021-10-21] MEDS: OMEPRAZOLE 20MG CAP PO SCH (10:18)
[2021-10-21] MEDS ORDERED: CYAN1000VL IM (11:31)
[2021-10-21] MEDS ORDERED: VIMP200T PO (11:31)
[2021-10-21] MEDS ORDERED: MIRA3350 PO (11:31)
[2021-10-21] MEDS ORDERED: FOLI1TAB11 PO (11:31)
[2021-10-21 11:34] VITALS: BP 118/65
[2021-10-23] MEDS ORDERED: 3ML25MIS IM (12:19)
== END 2021-10-21 14:30 | disposition home or self-care (01) | DRG 312 ==
LOC: M ED 17:33 → EDBD 17:33 → M ED INP 19:53 → ENRESERV 20:11 → M MSPAV 21:50
PROVIDERS: ADMIT Internal Medicine; ATTEND Internal Medicine Nephrology
PROC: 30233N1 Transfusion of Nonautologous Red Blood Cells into Peripheral Vein, Percutaneous Approach (ICD-10-PCS; principal; 2021-10-12)
DX: I95.1 Orthostatic hypotension (principal); I77.79 Dissection of other specified artery; D61.818 Other pancytopenia; F05 Delirium due to known physiological condition; I10 Essential (primary) hypertension; E78.5 Hyperlipidemia, unspecified; F41.9 Anxiety disorder, unspecified; I69.298 Other sequelae of other nontraumatic intracranial hemorrhage; G40.909 Epilepsy, unspecified, not intractable, without status epilepticus; F32.A Depression, unspecified; Z66 Do not resuscitate; R29.6 Repeated falls; E83.42 Hypomagnesemia; E87.6 Hypokalemia; K21.9 Gastro-esophageal reflux disease without esophagitis; H40.9 Unspecified glaucoma; H35.30 Unspecified macular degeneration; K59.00 Constipation, unspecified; G31.84 Mild cognitive impairment of uncertain or unknown etiology; D51.9 Vitamin B12 deficiency anemia, unspecified; D63.8 Anemia in other chronic diseases classified elsewhere; Z90.49 Acquired absence of other specified parts of digestive tract; Z88.0 Allergy status to penicillin; Z85.43 Personal history of malignant neoplasm of ovary; Z79.899 Other long term (current) drug therapy

== ENCOUNTER 2021-11-13 12:46 | Inpatient (IN) | payer MEDICARE ==
[~2021-11-13] VITALS: Ht 170.2 cm; Wt 61.0 kg
[~2021-11-13 12:46] MED LIST changes: +3ML25MIS IM; +CYAN1000VL IM; +FOLI1TAB11 PO; +MAGN50TA PO; +POTA10808 PO; +VIMP200T PO
[2021-11-13] MEDS ORDERED: VIMP150T PO (13:02)
[2021-11-13 16:47] LABS: BASO # 0.1 10^3/uL (0.0-0.2); BASO % 0.7 % (0.0-1.0); EOS # 0.1 10^3/uL (0.0-0.5); EOS % 0.9 % (0.0-3.0); HEMATOCRIT 37.6 % (36.0-47.0); HEMOGLOBIN 12.1 g/dl (12.0-15.5); LYMPH # 1.7 10^3/uL (1.5-5.0); LYMPH % 22.3 % (24.0-44.0); MEAN CORPUSCULAR HEMOGLOBIN 27.5 pg (27.0-33.0); MEAN CORPUSCULAR HGB CONC 32.2 g/dl (32.0-36.5); MEAN CORPUSCULAR VOLUME 85.5 fl (80.0-96.0); MONO # 0.4 10^3/uL (0.0-0.8); MONO % 5.8 % (2.0-8.0); NEUTROPHILS # 5.2 10^3/uL (1.5-8.5); PLATELET COUNT, AUTOMATED 341 10^3/uL (150-450); WHITE BLOOD COUNT 7.4 10^3/uL (4.0-10.0)
[2021-11-13 16:56] LABS: BLOOD UREA NITROGEN 11 MG/DL (7-18); CALCIUM LEVEL 9.3 MG/DL (8.8-10.2); CARBON DIOXIDE LEVEL 23 MEQ/L (21-32); CHLORIDE LEVEL 102 MEQ/L (98-107); GLOMERULAR FILTRATION RATE > 60.0 (>32); GLUCOSE, FASTING 102 MG/DL (70-100); SODIUM LEVEL 131 MEQ/L (136-145)
[2021-11-13] MEDS ORDERED: HEPARIN SOD (PORCINE) 5000UNITS/ML 1ML VIAL/SYRINGE SC SCH (18:05)
[2021-11-13 18:09] LABS: RSV AMPLIFICATION NEGATIVE (NEGATIVE)
[2021-11-13] MEDS ORDERED: FOLI1TAB11 PO (18:13)
[2021-11-13] MEDS ORDERED: CYAN1000VL IM (18:13)
[2021-11-13] MEDS ORDERED: LACO200T PO (18:13)
[2021-11-13] MEDS ORDERED: HOME MED LIST COMPLETE! XX SCH (18:45)
[2021-11-13] MEDS ORDERED: MIRALAX *UNIT DOSE* 17GM PACKET PO PRN (19:45)
[2021-11-13 20:31] VITALS: BP 136/77
[2021-11-13] MEDS: LACOSAMIDE 50 MG TAB (VIMPAT) PO SCH (21:45)
[2021-11-13] MEDS: MONTELUKAST 10 MG TAB PO SCH (21:45)
[2021-11-13] MEDS: GABAPENTIN 100 MG CAP PO SCH (21:45)
[2021-11-13] MEDS: TIMOLOL MALEATE 0.5% OPHTH SOLN 5 ML OU SCH (23:02)
[2021-11-13] MEDS: PRAVASTATIN 10 MG TAB PO SCH (23:02)
[2021-11-14] MEDS ORDERED: NS 1,000 ML IV SCH (05:50)
[2021-11-14 06:20] VITALS: BP_SYST 111; BP_SYST 131; BP_SYST 68; BP_DIAS 46; BP_DIAS 66; BP_DIAS 76
[2021-11-14 06:41] LABS: HEMATOCRIT 33.4 % (36.0-47.0); HEMOGLOBIN 10.8 g/dl (12.0-15.5); MEAN CORPUSCULAR HEMOGLOBIN 27.5 pg (27.0-33.0); MEAN CORPUSCULAR HGB CONC 32.3 g/dl (32.0-36.5); PLATELET COUNT, AUTOMATED 317 10^3/uL (150-450); RED BLOOD COUNT 3.93 10^6/uL (4.00-5.40); WHITE BLOOD COUNT 6.6 10^3/uL (4.0-10.0)
[2021-11-14] MEDS ORDERED: NS 500 ML IV ONE (07:05)
[2021-11-14 07:26] LABS: BLOOD UREA NITROGEN 10 MG/DL (7-18); CALCIUM LEVEL 8.9 MG/DL (8.8-10.2); CARBON DIOXIDE LEVEL 29 MEQ/L (21-32); CHLORIDE LEVEL 101 MEQ/L (98-107); CREATININE FOR GFR 0.66 MG/DL (0.55-1.30); GLOMERULAR FILTRATION RATE > 60.0 (>32); GLUCOSE, FASTING 95 MG/DL (70-100); MAGNESIUM LEVEL 1.7 MG/DL (1.8-2.4); PHOSPHORUS LEVEL 3.7 MG/DL (2.5-4.9); POTASSIUM SERUM 3.3 MEQ/L (3.5-5.1); SODIUM LEVEL 135 MEQ/L (136-145)
[2021-11-14] MEDS: VENLAFAXINE **XR** 75MG CAPSULE PO SCH (08:58)
[2021-11-14] MEDS: GABAPENTIN 100 MG CAP PO SCH ×2 (08:58→20:27)
[2021-11-14] MEDS: FOLIC ACID 1MG TAB PO SCH (08:58)
[2021-11-14] MEDS: TIMOLOL MALEATE 0.5% OPHTH SOLN 5 ML OU SCH ×3 (08:59→20:28)
[2021-11-14] MEDS: OMEPRAZOLE 20MG CAP PO SCH (08:59)
[2021-11-14] MEDS: LACOSAMIDE 50 MG TAB (VIMPAT) PO SCH ×2 (09:25→20:27)
[2021-11-14] MEDS: MAGNESIUM GLUCONATE 500 MG TAB PO SCH (09:51)
[2021-11-14] MEDS ORDERED: POTASSIUM CHLORIDE 10MEQ SR TABLET PO ONE (12:00)
[2021-11-14] MEDS ORDERED: MAGNESIUM OXIDE 400MG TAB (MAG-OX) PO ONE (12:00)
[2021-11-14 14:00] VITALS: BP 142/72
[2021-11-14 18:19] VITALS: BP_SYST 113; BP_SYST 81; BP_DIAS 58; BP_DIAS 62; BP_DIAS 63
[2021-11-14] MEDS: NS 1,000 ML IV SCH ×2 (18:49→23:59)
[2021-11-14] MEDS: PRAVASTATIN 10 MG TAB PO SCH (20:27)
[2021-11-14] MEDS: MONTELUKAST 10 MG TAB PO SCH (20:27)
[2021-11-14 21:00] VITALS: BP 109/56
[2021-11-15 05:46] VITALS: BP 153/77
[2021-11-15 06:22] VITALS: BP_SYST 142; BP_SYST 145; BP_SYST 147; BP_DIAS 75; BP_DIAS 85
[2021-11-15 06:34] LABS: HEMATOCRIT 33.5 % (36.0-47.0); HEMOGLOBIN 10.7 g/dl (12.0-15.5); MEAN CORPUSCULAR HEMOGLOBIN 27.8 pg (27.0-33.0); MEAN CORPUSCULAR HGB CONC 31.9 g/dl (32.0-36.5); PLATELET COUNT, AUTOMATED 263 10^3/uL (150-450); RED BLOOD COUNT 3.85 10^6/uL (4.00-5.40); WHITE BLOOD COUNT 6.1 10^3/uL (4.0-10.0)
[2021-11-15] MEDS: ACETAMINOPHEN 500 MG TAB PO PRN ×3 (06:36→20:27)
[2021-11-15 07:06] LABS: BLOOD UREA NITROGEN 6 MG/DL (7-18); CALCIUM LEVEL 8.8 MG/DL (8.8-10.2); CARBON DIOXIDE LEVEL 27 MEQ/L (21-32); CHLORIDE LEVEL 108 MEQ/L (98-107); GLOMERULAR FILTRATION RATE > 60.0 (>32); GLUCOSE, FASTING 92 MG/DL (70-100); MAGNESIUM LEVEL 1.6 MG/DL (1.8-2.4); PHOSPHORUS LEVEL 3.2 MG/DL (2.5-4.9); POTASSIUM SERUM 3.8 MEQ/L (3.5-5.1); SODIUM LEVEL 140 MEQ/L (136-145)
[2021-11-15] MEDS: FOLIC ACID 1MG TAB PO SCH (09:00)
[2021-11-15] MEDS: GABAPENTIN 100 MG CAP PO SCH ×2 (09:00→20:26)
[2021-11-15] MEDS: MAG SULF 1GM/100ML (MAG RUN) 1 GM in IV 1 EA IV SCH ×2 (09:00→10:08)
[2021-11-15] MEDS: OMEPRAZOLE 20MG CAP PO SCH (09:00)
[2021-11-15] MEDS: LACOSAMIDE 50 MG TAB (VIMPAT) PO SCH ×2 (09:00→20:26)
[2021-11-15] MEDS: VENLAFAXINE **XR** 75MG CAPSULE PO SCH (09:00)
[2021-11-15] MEDS: MAGNESIUM GLUCONATE 500 MG TAB PO SCH (09:01)
[2021-11-15] MEDS: TIMOLOL MALEATE 0.5% OPHTH SOLN 5 ML OU SCH ×3 (09:02→20:26)
[2021-11-15] MEDS: MONTELUKAST 10 MG TAB PO SCH (20:26)
[2021-11-15] MEDS: PRAVASTATIN 10 MG TAB PO SCH (20:26)
[2021-11-16 06:00] VITALS: BP 119/51
[2021-11-16] MEDS: LACOSAMIDE 50 MG TAB (VIMPAT) PO SCH ×2 (08:39→20:03)
[2021-11-16] MEDS: OMEPRAZOLE 20MG CAP PO SCH (08:39)
[2021-11-16] MEDS: MAGNESIUM GLUCONATE 500 MG TAB PO SCH (08:39)
[2021-11-16] MEDS: GABAPENTIN 100 MG CAP PO SCH ×2 (08:39→20:03)
[2021-11-16] MEDS: VENLAFAXINE **XR** 75MG CAPSULE PO SCH (08:39)
[2021-11-16] MEDS: FOLIC ACID 1MG TAB PO SCH (08:39)
[2021-11-16] MEDS: TIMOLOL MALEATE 0.5% OPHTH SOLN 5 ML OU SCH ×3 (08:40→20:03)
[2021-11-16] MEDS: ACETAMINOPHEN 500 MG TAB PO PRN ×2 (09:59→20:04)
[2021-11-16] MEDS: MONTELUKAST 10 MG TAB PO SCH (20:03)
[2021-11-16] MEDS: PRAVASTATIN 10 MG TAB PO SCH (20:03)
[2021-11-16] MEDS: DOXYCYCLINE HYCLATE 100MG TABLET PO SCH (21:42)
[2021-11-17 06:00] VITALS: BP 154/71
[2021-11-17 06:09] LABS: BASO % 0.4 % (0.0-1.0); EOS # 0.2 10^3/uL (0.0-0.5); EOS % 2.8 % (0.0-3.0); HEMATOCRIT 35.1 % (36.0-47.0); HEMOGLOBIN 11.2 g/dl (12.0-15.5); LYMPH # 1.7 10^3/uL (1.5-5.0); LYMPH % 22.1 % (24.0-44.0); MEAN CORPUSCULAR HEMOGLOBIN 27.5 pg (27.0-33.0); MEAN CORPUSCULAR HGB CONC 31.9 g/dl (32.0-36.5); MONO # 0.5 10^3/uL (0.0-0.8); MONO % 6.2 % (2.0-8.0); NEUTROPHILS # 5.3 10^3/uL (1.5-8.5); NEUTROPHILS % 68.2 % (36.0-66.0); PLATELET COUNT, AUTOMATED 276 10^3/uL (150-450); RED BLOOD COUNT 4.08 10^6/uL (4.00-5.40); WHITE BLOOD COUNT 7.8 10^3/uL (4.0-10.0)
[2021-11-17 06:37] LABS: ERYTHROCYTE SEDIMENTATION RATE 61 mm/hr (0-30)
[2021-11-17 06:42] LABS: BLOOD UREA NITROGEN 5 MG/DL (7-18); C REACTIVE PROTEIN QUANTITATIV 0.83 MG/DL (0.00-0.30); CALCIUM LEVEL 9.4 MG/DL (8.8-10.2); CARBON DIOXIDE LEVEL 28 MEQ/L (21-32); CHLORIDE LEVEL 106 MEQ/L (98-107); CREATININE FOR GFR 0.58 MG/DL (0.55-1.30); GLOMERULAR FILTRATION RATE > 60.0 (>32); GLUCOSE, FASTING 93 MG/DL (70-100); MAGNESIUM LEVEL 1.9 MG/DL (1.8-2.4); POTASSIUM SERUM 3.7 MEQ/L (3.5-5.1); SODIUM LEVEL 141 MEQ/L (136-145)
[2021-11-17] MEDS: LACOSAMIDE 50 MG TAB (VIMPAT) PO SCH ×2 (08:23→20:57)
[2021-11-17] MEDS: DOXYCYCLINE HYCLATE 100MG TABLET PO SCH ×2 (08:23→20:57)
[2021-11-17] MEDS: MAGNESIUM GLUCONATE 500 MG TAB PO SCH (08:23)
[2021-11-17] MEDS: VENLAFAXINE **XR** 75MG CAPSULE PO SCH (08:23)
[2021-11-17] MEDS: OMEPRAZOLE 20MG CAP PO SCH (08:23)
[2021-11-17] MEDS: LACTOBACILLUS ACIDOPHILUS CAP (BACID) PO SCH (08:23)
[2021-11-17] MEDS: FOLIC ACID 1MG TAB PO SCH (08:24)
[2021-11-17] MEDS: GABAPENTIN 100 MG CAP PO SCH ×2 (08:24→20:57)
[2021-11-17] MEDS: TIMOLOL MALEATE 0.5% OPHTH SOLN 5 ML OU SCH ×3 (08:24→20:59)
[2021-11-17] MEDS: ACETAMINOPHEN 500 MG TAB PO PRN (11:37)
[2021-11-17] MEDS: MONTELUKAST 10 MG TAB PO SCH (20:57)
[2021-11-17] MEDS: PRAVASTATIN 10 MG TAB PO SCH (20:59)
[2021-11-18 06:00] VITALS: BP 142/66
[2021-11-18] MEDS: OMEPRAZOLE 20MG CAP PO SCH (09:43)
[2021-11-18] MEDS: DOXYCYCLINE HYCLATE 100MG TABLET PO SCH ×2 (09:43→20:15)
[2021-11-18] MEDS: GABAPENTIN 100 MG CAP PO SCH ×2 (09:43→20:15)
[2021-11-18] MEDS: TIMOLOL MALEATE 0.5% OPHTH SOLN 5 ML OU SCH ×3 (09:44→20:15)
[2021-11-18] MEDS: VENLAFAXINE **XR** 75MG CAPSULE PO SCH (09:44)
[2021-11-18] MEDS: LACOSAMIDE 50 MG TAB (VIMPAT) PO SCH ×2 (09:44→20:15)
[2021-11-18] MEDS: FOLIC ACID 1MG TAB PO SCH (09:44)
[2021-11-18] MEDS: LACTOBACILLUS ACIDOPHILUS CAP (BACID) PO SCH (09:44)
[2021-11-18] MEDS: ACETAMINOPHEN 500 MG TAB PO PRN ×2 (09:46→17:42)
[2021-11-18] MEDS: MAGNESIUM GLUCONATE 500 MG TAB PO SCH (09:47)
[2021-11-18] MEDS: MONTELUKAST 10 MG TAB PO SCH (20:15)
[2021-11-18] MEDS: PRAVASTATIN 10 MG TAB PO SCH (20:15)
[2021-11-19 06:00] VITALS: BP 113/65
[2021-11-19] MEDS: DOXYCYCLINE HYCLATE 100MG TABLET PO SCH (08:34)
[2021-11-19] MEDS: OMEPRAZOLE 20MG CAP PO SCH (08:34)
[2021-11-19] MEDS: LACTOBACILLUS ACIDOPHILUS CAP (BACID) PO SCH (08:34)
[2021-11-19] MEDS: VENLAFAXINE **XR** 75MG CAPSULE PO SCH (08:34)
[2021-11-19] MEDS: FOLIC ACID 1MG TAB PO SCH (08:34)
[2021-11-19] MEDS: GABAPENTIN 100 MG CAP PO SCH (08:34)
[2021-11-19] MEDS: TIMOLOL MALEATE 0.5% OPHTH SOLN 5 ML OU SCH (08:34)
[2021-11-19] MEDS: LACOSAMIDE 50 MG TAB (VIMPAT) PO SCH (08:34)
[2021-11-19] MEDS: MAGNESIUM GLUCONATE 500 MG TAB PO SCH (08:34)
[2021-11-19] MEDS ORDERED: RISATAB3 PO (11:41)
[2021-11-19] MEDS ORDERED: VIMP50TA3 PO (11:41)
[2021-11-19] MEDS ORDERED: DOXY100T PO (11:41)
[2021-11-19] MEDS: ACETAMINOPHEN 500 MG TAB PO PRN (12:55)
== END 2021-11-19 13:35 | DRG 884 ==
LOC: M ED 12:46 → M ED INP 18:01 → M MSPAV 20:11
PROVIDERS: ADMIT Internal Medicine; ATTEND Internal Medicine
DX: F03.90 Unspecified dementia, unspecified severity, without behavioral disturbance, psychotic disturbance, mood disturbance, and anxiety (principal); I77.79 Dissection of other specified artery; R44.0 Auditory hallucinations; R29.6 Repeated falls; I95.1 Orthostatic hypotension; R44.1 Visual hallucinations; I69.398 Other sequelae of cerebral infarction; R26.89 Other abnormalities of gait and mobility; D64.9 Anemia, unspecified; K59.00 Constipation, unspecified; Z66 Do not resuscitate; E11.9 Type 2 diabetes mellitus without complications; I10 Essential (primary) hypertension; E78.5 Hyperlipidemia, unspecified; F32.A Depression, unspecified; F41.9 Anxiety disorder, unspecified; K42.9 Umbilical hernia without obstruction or gangrene; G40.909 Epilepsy, unspecified, not intractable, without status epilepticus; E53.8 Deficiency of other specified B group vitamins; T42.75XA Adverse effect of unspecified antiepileptic and sedative-hypnotic drugs, initial encounter; H40.9 Unspecified glaucoma; H35.30 Unspecified macular degeneration; Z90.49 Acquired absence of other specified parts of digestive tract; Z79.899 Other long term (current) drug therapy; Z88.0 Allergy status to penicillin

== ENCOUNTER → 2021-11-21 | Outpatient (CLI) | payer MEDICARE ==
[~2021-11-21] MED LIST changes: +DOXY100T PO; +LACO200T PO; +RISATAB3 PO; +VIMP150T PO; +VIMP50TA3 PO
== END ==
PROVIDERS: ATTEND Internal Medicine
DX: M25.561 Pain in right knee (principal); M25.562 Pain in left knee

== ENCOUNTER → 2021-12-02 | Outpatient (REF) ==
[~2021-12-02] MED LIST changes: +ACET-897 PO; +ACET-907 PO; +ACET650T15 PO; +DICL1GEL3 TOP; +DULC10SU2 PR; +FLEEENE12 PR; +LACO150T PO; +MILKSUS7 PO; +MIRA1POW3 PO; +VENL75CA2 PO
[2021-12-02 10:53] LABS: HEMATOCRIT 34.3 % (36.0-47.0); HEMOGLOBIN 11.1 g/dl (12.0-15.5); MEAN CORPUSCULAR HEMOGLOBIN 27.6 pg (27.0-33.0); MEAN CORPUSCULAR HGB CONC 32.4 g/dl (32.0-36.5); MEAN CORPUSCULAR VOLUME 85.3 fl (80.0-96.0); PLATELET COUNT, AUTOMATED 292 10^3/uL (150-450); RED BLOOD COUNT 4.02 10^6/uL (4.00-5.40); WHITE BLOOD COUNT 6.8 10^3/uL (4.0-10.0)
[2021-12-02 11:55] LABS: BLOOD UREA NITROGEN 6 MG/DL (7-18); CALCIUM LEVEL 8.9 MG/DL (8.8-10.2); CARBON DIOXIDE LEVEL 28 MEQ/L (21-32); CHLORIDE LEVEL 104 MEQ/L (98-107); CREATININE FOR GFR 0.67 MG/DL (0.55-1.30); GLOMERULAR FILTRATION RATE > 60.0 (>32); GLUCOSE, FASTING 141 MG/DL (70-100); MAGNESIUM LEVEL 1.9 MG/DL (1.8-2.4); POTASSIUM SERUM 3.6 MEQ/L (3.5-5.1); SODIUM LEVEL 138 MEQ/L (136-145)
== END ==
PROVIDERS: ATTEND Physician Assistant
DX: G40.909 Epilepsy, unspecified, not intractable, without status epilepticus (principal)

== ENCOUNTER 2021-12-04 17:35 | Observation (INO) | payer MEDICARE ==
[~2021-12-04] VITALS: Ht 167.6 cm; Wt 67.0 kg
[~2021-12-04 17:35] MED LIST changes: -ACET-897 PO; -ACET-907 PO; -ACET650T15 PO; -DICL1GEL3 TOP; -DULC10SU2 PR; -FLEEENE12 PR; -LACO150T PO; -MILKSUS7 PO; -MIRA1POW3 PO; -VENL75CA2 PO
[2021-12-04] MEDS: niCARdipine IV 40 MG in IV 1 EA IV SCH ×2 (18:35→18:46)
[2021-12-04 19:00] LABS: BASO % 0.4 % (0.0-1.0); EOS # 0.1 10^3/uL (0.0-0.5); EOS % 1.1 % (0.0-3.0); HEMATOCRIT 34.5 % (36.0-47.0); HEMOGLOBIN 11.3 g/dl (12.0-15.5); LYMPH # 1.5 10^3/uL (1.5-5.0); LYMPH % 13.2 % (24.0-44.0); MEAN CORPUSCULAR HEMOGLOBIN 27.8 pg (27.0-33.0); MEAN CORPUSCULAR HGB CONC 32.8 g/dl (32.0-36.5); MONO # 0.7 10^3/uL (0.0-0.8); MONO % 6.6 % (2.0-8.0); NEUTROPHILS # 8.7 10^3/uL (1.5-8.5); NEUTROPHILS % 78.3 % (36.0-66.0); PLATELET COUNT, AUTOMATED 285 10^3/uL (150-450); RED BLOOD COUNT 4.06 10^6/uL (4.00-5.40); WHITE BLOOD COUNT 11.1 10^3/uL (4.0-10.0)
[2021-12-04] MEDS ORDERED: dexameTHASONE 20MG/5ML VIAL (J1100 PER 1MG) IV ONE (19:00)
[2021-12-04 19:11] LABS: INR 0.99; PROTHROMBIN TIME 13.5 SECONDS (12.7-14.5)
[2021-12-04 19:12] LABS: PARTIAL THROMBOPLASTIN TIME 29.5 SECONDS (25.9-37.0)
[2021-12-04 19:29] LABS: RSV AMPLIFICATION NEGATIVE (NEGATIVE)
[2021-12-04 19:31] LABS: BLOOD UREA NITROGEN 8 MG/DL (7-18); CARBON DIOXIDE LEVEL 28 MEQ/L (21-32); CHLORIDE LEVEL 101 MEQ/L (98-107); CREATININE FOR GFR 0.59 MG/DL (0.55-1.30); GLOMERULAR FILTRATION RATE > 60.0 (>32); GLUCOSE, FASTING 122 MG/DL (70-100); POTASSIUM SERUM 3.4 MEQ/L (3.5-5.1); SODIUM LEVEL 137 MEQ/L (136-145)
[2021-12-04 19:34] LABS: CK-MB VALUE MASS < 1.0 NG/ML (<3.6); CPK CREATINE PHOSPHOKINASE 41 U/L (26-192); MB/CK RELATIVE INDEX 2.44 (< OR =4)
[2021-12-04] MEDS ORDERED: OXYB5TAB10 PO (19:49)
[2021-12-04] MEDS ORDERED: LEVE500T5 PO (19:49)
[2021-12-04] MEDS ORDERED: LOSA25TA13 PO (19:49)
[2021-12-04] MEDS ORDERED: METF500T13 PO (19:49)
[2021-12-04] MEDS ORDERED: LACO200T PO (19:49)
[2021-12-04] MEDS ORDERED: VENL75CA2 PO (19:49)
[2021-12-04] MEDS ORDERED: ONDANSETRON 4MG 2ML VIAL IV ONE (19:50)
[2021-12-04] MEDS ORDERED: ONDANSETRON 4MG 2ML VIAL As Ordered ONE (19:51)
[2021-12-04] MEDS: MORPHINE 2 MG/ML 1ML VIAL IV PRN ×2 (19:53→21:56)
[2021-12-04] MEDS: TIMOLOL MALEATE 0.5% OPHTH SOLN 5 ML OU SCH (21:00)
[2021-12-04 21:25] VITALS: BP 117/58
[2021-12-04] MEDS ORDERED: MILKSUS7 PO (22:03)
[2021-12-04] MEDS ORDERED: ACET-897 PO (22:03)
[2021-12-04] MEDS ORDERED: DICL1GEL3 TOP (22:03)
[2021-12-04] MEDS ORDERED: LACO150T PO (22:03)
[2021-12-04] MEDS ORDERED: MIRA1POW3 PO (22:03)
[2021-12-04] MEDS ORDERED: FLEEENE12 PR (22:03)
[2021-12-04] MEDS ORDERED: ACET650T15 PO (22:03)
[2021-12-04] MEDS ORDERED: DULC10SU2 PR (22:03)
[2021-12-04] MEDS ORDERED: ACET-907 PO (22:03)
[2021-12-04] MEDS ORDERED: HOME MED LIST COMPLETE! XX SCH (22:05)
[2021-12-04] MEDS ORDERED: ACETAMINOPHEN 650 MG SUPP PR PRN (22:05)
[2021-12-04] MEDS ORDERED: BISACODYL 10 MG SUPP PR PRN (22:40)
[2021-12-04] MEDS ORDERED: FLEET ENEMA PR PRN (22:40)
[2021-12-05] MEDS: GABAPENTIN 100 MG CAP PO SCH ×3 (00:29→20:40)
[2021-12-05] MEDS: MORPHINE 10MG/0.5ML ORAL CONCENTRATE SOLUTION U/D SL PRN ×7 (00:29→22:19)
[2021-12-05] MEDS: LACOSAMIDE 50 MG TAB (VIMPAT) PO SCH ×3 (00:29→20:19)
[2021-12-05] MEDS: ONDANSETRON 4MG ORAL DISINTEGRATING TAB PO PRN ×3 (01:06→16:11)
[2021-12-05] MEDS: OMEPRAZOLE 20MG CAP PO SCH (11:39)
[2021-12-05] MEDS: TIMOLOL MALEATE 0.5% OPHTH SOLN 5 ML OU SCH ×3 (11:40→21:00)
[2021-12-05] MEDS: SENOKOT S TAB PO SCH (11:40)
[2021-12-05] MEDS: VENLAFAXINE **XR** 75MG CAPSULE PO SCH (11:40)
[2021-12-05] MEDS ORDERED: PINK BISMUTH SUSP 524MG/30ML ORAL SYRINGE PO PRN (22:40)
[2021-12-06] MEDS: OMEPRAZOLE 20MG CAP PO SCH (09:00)
[2021-12-06] MEDS: TIMOLOL MALEATE 0.5% OPHTH SOLN 5 ML OU SCH (09:00)
[2021-12-06] MEDS: VENLAFAXINE **XR** 75MG CAPSULE PO SCH (09:00)
[2021-12-06] MEDS: GABAPENTIN 100 MG CAP PO SCH (09:00)
[2021-12-06] MEDS: LACOSAMIDE 50 MG TAB (VIMPAT) PO SCH (09:00)
[2021-12-06] MEDS: SENOKOT S TAB PO SCH (09:00)
[2021-12-06] MEDS: MORPHINE 10MG/0.5ML ORAL CONCENTRATE SOLUTION U/D SL PRN ×2 (09:29→13:34)
[2021-12-06] MEDS: ONDANSETRON 4MG ORAL DISINTEGRATING TAB PO PRN (09:29)
[2021-12-06] MEDS ORDERED: MORP1SOL5 PO (10:49)
[2021-12-06] MEDS ORDERED: HYOS125TA PO (10:49)
[2021-12-06] MEDS ORDERED: ATIV1TAB10 PO (10:49)
[2021-12-06] MEDS ORDERED: ACET-897 PO (10:49)
[2021-12-06] MEDS ORDERED: MORP1SOL SL (10:59)
== END 2021-12-06 15:37 ==
LOC: M ED 17:35 → M ED INP 17:36 → ENRESERV 23:23 → M PCU 12-05 00:15
PROVIDERS: ADMIT Internal Medicine; ATTEND Internal Medicine
DX: S06.6X0A Traumatic subarachnoid hemorrhage without loss of consciousness, initial encounter (principal); W19.XXXA Unspecified fall, initial encounter; Y92.128 Other place in nursing home as the place of occurrence of the external cause; R51.9 Headache, unspecified; G31.1 Senile degeneration of brain, not elsewhere classified; F03.90 Unspecified dementia, unspecified severity, without behavioral disturbance, psychotic disturbance, mood disturbance, and anxiety; R56.9 Unspecified convulsions; Z86.73 Personal history of transient ischemic attack (TIA), and cerebral infarction without residual deficits; Z79.899 Other long term (current) drug therapy; Z88.0 Allergy status to penicillin; Z66 Do not resuscitate; Z51.5 Encounter for palliative care
CPT/HCPCS: 70450; 71045; 72125; 80047; 80048; 82550; 82553; 84484; 85025; 85610; 85730; 87631; 93005; 93041; 94760; 96365; 96366; 96375; 96376; 99285; G0378; J1100; J2270; J2405

== ENCOUNTER → 2021-12-06 | Outpatient (REF) ==
[~2021-12-06] MED LIST changes: +ACET-897 PO; +ACET-907 PO; +ACET650T15 PO; +ATIV1TAB10 PO; +DICL1GEL3 TOP; +DULC10SU2 PR; +FLEEENE12 PR; +HYOS125TA PO; +LACO150T PO; +MILKSUS7 PO; +MIRA1POW3 PO; +MORP1SOL SL; +MORP1SOL5 PO; +VENL75CA2 PO
== END ==
PROVIDERS: ATTEND Internal Medicine
DX: G40.909 Epilepsy, unspecified, not intractable, without status epilepticus (principal); Z53.8 Procedure and treatment not carried out for other reasons